=== PATIENT | female | born 1975 | race Caucasian/White ===

== ENCOUNTER 2023-08-27 06:02 | Emergency (ER) | payer SELFPAY ==
[2023-08-27 06:06] VITALS: BP 164/96; PULSE 104; RESP 16; TEMP 36.7; O2SAT 98; BMI 30.5
--- NOTE | 2023-08-27 06:28 | W.ED.SKABFB ---
HPI - Skin/Abscess/Foreign Bdy General: Chief complaint: Skin/Abscess/Foreign Body Stated complaint: bug stuck in right ear Time Seen by Provider: 08/27/23 06:03 Source: patient Mode of arrival: ambulatory History of Present Illness: 48-year-old female presents emergency room complaining of having a bug in her right ear. She had tried several home remedies particularly placing oil in the ear. She is unable to get it removed. She has not had any bleeding from the ear no other complaints Onset (ago): hour(s) Physical Exam Narrative: EXAM NARRATIVE: 48-year-old female with no acute distress examination here there is a insect in the left external auditory canal does not appear to be active no bleeding unable to visualize TM because obstructed by the insect Procedures FB Removal Ear Location: ear canal (R) Foreign Body Suspected: insect TM intact pre-procedure: unable to visualize If Insect Suspected: ear canal instilled with mineral oil (By patient prior to arrival) Foreign Body Removed: yes Foreign Body Removal Technique: instrumentation Tympanic Membrane Intact Post Procedure: Yes Patient Tolerated Procedure: well Complications: none Course Vital Signs: Vital signs: Vital Signs Temperature 98.0 F 08/27/23 06:06 Pulse Rate 87 08/27/23 08:41 Respiratory Rate 15 08/27/23 06:30 Blood Pressure 130/88 08/27/23 08:41 Pulse Oximetry 98 08/27/23 08:41 Oxygen Delivery Me thod Room Air 08/27/23 06:30 MDM - Skin/Abscess/Foreign Bdy Medicial Decision Making Insect removed under direct visualization with alligator forceps. Patient tolerated well TM visualized after appears normal no trauma no sign of infection. Patient relates she is allergic to steroids cannot take them so we will give her ciprofloxacin to place in the ear for 5 days follow-up as needed No radiology studies performed this visit Discharge Plan Discharge Patient Disposition: Home Clinical Impression: Acute foreign body of right ear canal Condition: Stable Prescriptions: New ciprofloxacin HCl 0.2 % dropperette 5 drp otic (ear) BID 5 Days Qty: 14 0RF No Action thyroid (pork) [Munising Thyroid] 90 mg tablet 90 mg PO DAILY fexofenadine-pseudoephedrine [Mari-D 12 Hour] 60-120 mg tablet extended release 12 hr 1 tab PO Q12H PRN (Reason: sinus symptoms) 14 Days Qty: 30 0RF doxycycline hyclate 100 mg tablet 100 mg PO BID 10 Days Qty: 20 0RF Discharge Orders: Discharge ED (Routine); Ordered 08/27/23 Ordered By: Bismark Carmichael Referrals: Remigio Myers DO [Family Provider] - Gaurav Richards MD [Primary Care Provider] - Discharge Diet: Usual diet Discharge Activity: Resume usual activity Patient Instructions: Opioid Safety, Pain Management Activity Restrictions/Additional Instructions: You were seen in the emergency room today for an insect in your canal this was removed intact use Cipro drops for the next 5 days follow-up with your primary care doctor as needed. Coding Level of Care Code ED [employer] Consultant for Vani Dolan
[2023-08-27 06:30] VITALS: BP 142/91; PULSE 82; RESP 15; O2SAT 99
[2023-08-27 08:41] VITALS: BP 130/88; PULSE 87; O2SAT 98
== END 2023-08-27 08:42 | disposition home or self-care (01) ==
PROVIDERS: Emergency Provider Family Medicine; Family Provider Family Medicine; PCP Family Medicine
DX: T16.1XXA Foreign body in right ear, initial encounter (principal); W44.F4XA Insect entering into or through a natural orifice, initial encounter
CPT/HCPCS: 69200; 99283

== ENCOUNTER → 2024-10-17 09:38 | Outpatient (BNVA) | payer BC, MEDICAID, SELFPAY | PROVIDERS: PCP Family Medicine; Visit Provider Nurse Practitioner | DX: R30.0 Dysuria (principal) | CPT/HCPCS: 81000; 87086 ==

== ENCOUNTER → 2025-02-13 10:16 | Outpatient (BNVA) | payer BC, MEDICAID, SELFPAY | PROVIDERS: PCP Family Medicine; Visit Provider Nurse Practitioner | DX: M79.672 Pain in left foot (principal) | CPT/HCPCS: 73630 ==